=== PATIENT | male | born 1990 | race Caucasian/White ===

== ENCOUNTER 2019-05-05 17:23 | Emergency (ER) | payer OTHER ==
[~2019-05-05] VITALS: Ht 177.8 cm; Wt 97.5 kg
[2019-05-05 18:30] LABS: ABSOLUTE NEUTROPHILS 3.4 thou/uL (1.4-8.2); BASOPHILS 0.7 % (0.0-2.0); EOSINOPHILS 0.2 % (0.0-3.0); HEMATOCRIT 46.1 % (42.0-52.0); HEMOGLOBIN 15.7 gm/dL (14.0-18.0); LYMPHOCYTES 22.1 % (24.0-44.0); MCH 30.7 pg (26.0-34.0); MCV 90.1 fL (80.0-100.0); MONOCYTES 6.7 % (1.0-8.0); PLATELET COUNT 189 thou/uL (150-400); POLYS 70.3 % (36.0-66.0); RBC 5.12 mil/uL (4.50-6.00); RDW 13.4 % (10.5-14.5); WBC 4.9 thou/uL (4.0-11.0)
[2019-05-05 18:46] LABS: ANION GAP 12 mmol/L (7-16); BUN 9 mg/dL (7-18); CALCIUM 9.4 mg/dL (8.5-10.1); CHLORIDE 101 mmol/L (98-107); CO2 27 mmol/L (21-32); CREATININE 0.9 mg/dL (0.7-1.3); GLUCOSE 89 mg/dL (74-106); POTASSIUM 3.3 mmol/L (3.5-5.1); SODIUM 140 mmol/L (136-145)
[2019-05-05 18:51] LABS: TROPONIN-I <0.06 ng/mL (<0.06)
[2019-05-05 19:14] LABS: AMP/METHAMP Negative (Negative); BARBITURATES Negative (Negative); BENZODIAZEPINES Negative (Negative); COCAINE Negative (Negative); METHADONE Negative (Negative); OPIATES Negative (Negative); PCP Negative (Negative)
[2019-05-05] MEDS ORDERED: VALIUM2 MG PO (20:47)
[2019-05-05 20:49] VITALS: BP 123/71
--- NOTE | 2019-05-06 08:20 | EKG ---
[facility] [place]io[place] [address] ELECTROCARDIOGRAM REPORT Name: MADISON KATHLEEN Room #: DEP [facility]#: [id number] Admission: 05/05/19 Attend Phys: Discharge: 05/05/19 Date of : 88 Report #: [id number] THIS REPORT FOR: cc: Julio Ledesma MD,Julio Salinas,Ben Lorenzo MD [facility] ~ THIS REPORT FOR: //name// [facility] ED Test Date: 2019-05-05 Test Time: 17:35:42 Pat Name: MADISON KATHLEEN Department: Room: Gender: Project Development Leader: [facility] : 1990 Requested By: Julio Sorensen Order Number: [id number] MD: Ben Salinas Measurements Intervals [place] Rate: 80 P: 64 [place]: 125 QRS: 15 QRSD: 104 T: 17 QT: 364 QTc: 420 Interpretive Statements Sinus rhythm Normal tracing No previous ECG available for comparison Electronically Signed On 05-06-2019 8:19:10 [employer] by Ben Salinas [email or web address] <ELECTRONICALLY SIGNED> By: Ben Salinas MD, [facility] 05/06/19 0819 1735 1735 Ben Salinas MD, [facility] /EPI
== END 2019-05-05 21:06 | disposition home or self-care (01) ==
LOC: ER 17:23
PROVIDERS: Emergency Medicine
DX: R07.89 Other chest pain (principal); R00.2 Palpitations; F41.9 Anxiety disorder, unspecified; Z79.899 Other long term (current) drug therapy